=== PATIENT | female | born 1960 | race Caucasian/White ===

== ENCOUNTER 2023-01-29 08:16 | Emergency (ER) | payer MEDICARE, BC ==
[2023-01-29] MEDS ORDERED: Ketorolac 30 MG/ML SDV IVPUSH ONE (08:34)
[2023-01-29] MEDS ORDERED: fentaNYL 100 MCG/2 ML SDV IVPUSH ONE (09:58)
[2023-01-29] MEDS ORDERED: Acetaminophen/HYDROcodone 325-5 MG Tab PO ONE (10:30)
== END 2023-01-29 11:04 | disposition home health service (06) ==
LOC: DL.ED 08:16
DX: S42.291A Other displaced fracture of upper end of right humerus, initial encounter for closed fracture (principal); S80.01XA Contusion of right knee, initial encounter; W19.XXXA Unspecified fall, initial encounter
CPT/HCPCS: 73030; 73562; 96374; 96375; 99283; A9270; J1885; J3010